=== PATIENT | female | born 1970 | race African-American/Black ===

== ENCOUNTER → 2016-07-30 | Outpatient (CLI) | payer OTHER ==
[2015-12-24 15:02] VITALS: BP 139/97
[~2016-07-30] MED LIST: ASPI-482 PO; Aspirin PO; HYDR-2867 PO; HYDR25TA9 PO; Hydralazine Hcl PO; Hydrochlorothiazide PO; ISOS20TA2 PO; ISOS30TA4 PO; Isosorbide Mononitrate PO; LISI-334 PO; LISI20TA PO; METO25TA4 PO; METO50TA2 PO; Metoprolol Tartrate PO; PANT40TA3 PO; SUCR1TAB29 PO; TRAM50TA PO
--- NOTE | 2016-07-30 13:45 | KCIC ---
PROCEDURE Three-view right knee study HISTORY Right knee pain for 2 weeks with swelling. Status post injury. FINDINGS No acute fracture or dislocation or osteolytic process is seen. There is moderate spurring and mild joint space narrowing of the lateral tibiofemoral joint compartment. There is moderate spurring without joint space narrowing of the medial tibiofemoral joint compartment. Multiple benign-appearing osteochondromas including the distal femur and the proximal tibia are seen. IMPRESSION Osteochondromatosis. Primary degenerative osteoarthritis of the medial and lateral tibiofemoral joint compartments. Electronically signed by: Lincoln Kee MD (Jul 30, 2016 13:43:11)
== END | disposition home or self-care (01) ==
LOC: KCIC 11:40
PROVIDERS: ATTEND Internal Medicine
DX: M17.11 Unilateral primary osteoarthritis, right knee (principal); D48.0 Neoplasm of uncertain behavior of bone and articular cartilage; M25.461 Effusion, right knee
CPT/HCPCS: 73562

== ENCOUNTER 2016-10-25 20:42 | Emergency (ER) | payer OTHER ==
[~2016-10-25] VITALS: Ht 160 cm; Wt 98.4 kg
[2016-10-25 20:48] VITALS: BP 121/78
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
--- NOTE | 2016-10-26 08:07 | RAD ---
Indication injury, pain. AP oblique and lateral views of the right knee were obtained as well as a sunrise view. There are some mild degenerative changes involving the knee. No acute bony finding is apparent. There is likely a small joint effusion. IMPRESSION: No acute bony finding
--- NOTE | 2016-10-26 08:17 | RAD ---
Indication injury, pain. Internally and externally rotated views of the right shoulder as well as a Y view were obtained. There is slight irregularity adjacent to the acromion. This has a chronic appearance and appears similar to an examination June 25, 2014. No acute finding is seen. Significant degenerative changes are not apparent on plain films. IMPRESSION: No acute bony finding
== END 2016-10-25 21:53 | disposition home or self-care (01) ==
LOC: ER 20:42
DX: M25.511 Pain in right shoulder (principal); M25.561 Pain in right knee; I10 Essential (primary) hypertension; Z90.49 Acquired absence of other specified parts of digestive tract; Z91.018 Allergy to other foods; Z90.721 Acquired absence of ovaries, unilateral; Y08.89XA Assault by other specified means, initial encounter; Y93.89 Activity, other specified; Y92.89 Other specified places as the place of occurrence of the external cause; Y99.8 Other external cause status
CPT/HCPCS: 73030; 73564; 99284-25

== ENCOUNTER → 2017-01-10 | Outpatient (CLI) | payer OTHER ==
[~2017-01-10] MED LIST changes: -SUCR1TAB29 PO; +SUCR1TAB35 PO
[2017-01-10 13:07] LABS: BASO % 1 % (0-3); EOS % 1 % (0-3); HEMATOCRIT 44.6 % (36.0-47.0); HEMOGLOBIN 15.5 g/dL (12.0-15.5); LYMPH # 2.4 x10^3/uL (1.0-4.8); LYMPH % 43 % (24-48); MEAN CORPUSCULAR HEMOGLOBIN 35 pg (25-35); MEAN CORPUSCULAR HGB CONC 35 g/dL (31-37); MEAN CORPUSCULAR VOLUME 100 fL (79-100); MONO % 9 % (0-9); NEUT % 46 % (31-73); PLATELET COUNT 198 x10^3/uL (140-400); RED BLOOD COUNT 4.45 x10^6/uL (3.50-5.40); RED CELL DISTRIBUTION WIDTH 14.4 % (11.5-14.5); WHITE BLOOD COUNT 5.7 x10^3/uL (4.0-11.0)
[2017-01-10 13:20] LABS: ALBUMIN 3.4 g/dL (3.4-5.0); ALBUMIN/GLOBULIN RATIO 0.8 (1.0-1.7); CALCIUM 8.6 mg/dL (8.5-10.1); CHOLESTEROL/HDL RATIO 2.8; CREATININE 0.7 mg/dL (0.6-1.0); GFR 108.5; POTASSIUM 3.8 mmol/L (3.5-5.1); TOTAL BILIRUBIN 0.4 mg/dL (0.2-1.0); TOTAL PROTEIN 7.8 g/dL (6.4-8.2)
== END | disposition home or self-care (01) ==
LOC: LAB 12:24
PROVIDERS: ATTEND Nurse Practitioner
DX: I10 Essential (primary) hypertension (principal); E78.2 Mixed hyperlipidemia
CPT/HCPCS: 36415; 80053; 80061; 84443; 85025

== ENCOUNTER 2017-06-29 16:43 | Emergency (ER) | payer OTHER ==
[2017-06-29] MEDS: IBUPROFEN 800 MG TABLET. PO ×2 (17:00)
== END 2017-06-29 17:53 | disposition home or self-care (01) ==
LOC: ER 16:43
DX: S63.501A Unspecified sprain of right wrist, initial encounter (principal); I10 Essential (primary) hypertension; Z90.49 Acquired absence of other specified parts of digestive tract; Z98.51 Tubal ligation status; Z90.721 Acquired absence of ovaries, unilateral; Z91.018 Allergy to other foods; W18.2XXA Fall in (into) shower or empty bathtub, initial encounter; Y93.F1 Activity, caregiving, bathing; Y92.89 Other specified places as the place of occurrence of the external cause; Y99.8 Other external cause status
CPT/HCPCS: 29125; 73110; 99284

== ENCOUNTER 2017-11-05 11:43 | Emergency (ER) | payer SELFPAY, OTHER ==
[2017-11-05] MEDS: HYDROcodone/APAP 5/325MG 1 TAB TABLET PO (12:45)
[2017-11-05] MEDS: predniSONE 20 MG TABLET PO (12:46)
[2017-11-05] MEDS: NAPROXEN 500 MG TABLET PO (12:46)
== END 2017-11-05 14:01 | disposition home or self-care (01) ==
LOC: ER 14:01
DX: M17.11 Unilateral primary osteoarthritis, right knee (principal); G89.29 Other chronic pain; I10 Essential (primary) hypertension; Z90.49 Acquired absence of other specified parts of digestive tract; Z98.51 Tubal ligation status; Z91.018 Allergy to other foods
CPT/HCPCS: 73562; 99284; J7512

== ENCOUNTER 2019-02-26 13:11 | Emergency (ER) | payer SELFPAY ==
[~2019-02-26] VITALS: Ht 162.6 cm; Wt 95.3 kg
[~2019-02-26 13:11] MED LIST changes: +DICL50TA2 PO; +HYDR-2145 PO; -HYDR25TA9 PO; +IBUP-1060 PO; -METO50TA2 PO; +METO50TA6 PO; -PANT40TA3 PO; +PANT40TA77 PO
[2019-02-26 13:41] VITALS: BP 176/126
[2019-02-26] MEDS ORDERED: ORPHENADRINE CITRATE 60 MG/2 ML VIAL. IM ONE (14:30)
[2019-02-26] MEDS ORDERED: KETOROLAC 60 MG/2 ML VIAL. IM ONE (14:30)
[2019-02-26] MEDS ORDERED: NAPR-514 PO (14:41)
[2019-02-26] MEDS ORDERED: CYCL10TA2 PO (14:41)
--- NOTE | 2019-02-26 14:41 | PHYS DOC ---
Past Medical History Past Medical History: Hypertension Past Surgical History: Cholecystectomy, , Tubal ligation Additional Past Surgical Histo: RIGHT OOPHORECTOMY Alcohol Use: Occasionally Drug Use: None Adult General Chief Complaint Chief Complaint: UPPER EXTREMITY PAIN HPI HPI Patient is a 48 year old AA female who presents to the emergency Department today with complaints of right shoulder pain since awakening. Patient denies any recent injury, heavy lifting, or overuse of the affected extremity. She states that she woke up this morning with the pain. She currently rates the pain a 9 out of 10 on pain scale, there are no alleviating factors, the pain increases when she tries to move her arm. She denies any neck pain, headache, fever, numbness, tingling, or weakness. Review of Systems Review of Systems Constitutional: Denies fever or chills [] Eyes: Denies redness, or eye pain [] HENT: Denies nasal congestion or sore throat [] Respiratory: Denies cough or shortness of breath [] Cardiovascular: No additional information not addressed in HPI [] GI: Denies abdominal pain, nausea, vomiting, or diarrhea [] : Denies dysuria Musculoskeletal: See history of present illness Integument: Denies rash or skin lesions [] Neurologic: Denies headache, focal weakness or sensory changes [] Complete systems were reviewed and found to be within normal limits, except as documented in this note. Current Medications Current Medications Current Medications Medications (Trade) Dose Ordered Sig/[facility] Start Time Stop Time Status Last Admin Dose Admin Ketorolac Tromethamine (Toradol Im) 30 mg 1X ONCE 02/26/19 14:30 02/26/19 14:31 DC Orphenadrine Citrate (Norflex) 60 mg 1X ONCE 02/26/19 14:30 02/26/19 14:31 DC Allergies Allergies Allergies Coded Allergies Type Severity Reaction Last Updated Verified onion Allergy Intermediate 12/24/15 Yes pepper (genus Capsicum) Allergy Intermediate 01/29/15 Yes No Known Medication Allergies Allergy Unknown 06/28/14 Yes Physical Exam Physical Exam Constitutional: Well developed, well nourished, no acute distress, non-toxic appearance. [] HENT: Normocephalic, atraumatic, bilateral external ears normal, oropharynx moist, no oral exudates, nose normal. [] Eyes: PERRLA, EOMI, conjunctiva normal, no discharge. [] Neck: Normal range of motion, no bony or muscular TTP, supple, no stridor. [] Cardiovascular:Heart rate regular rhythm, no murmur [] Lungs & Thorax: Bilateral breath sounds clear to auscultation [] Skin: Warm, dry, no erythema, no rash. [] Back: No bony tenderness, R trapezius TTP and tightness Extremities: R shoulder: No bony tenderness, no cyanosis, no clubbing, ROM limited due to pain, no edema. [] Neurologic: Alert and oriented X 3, no focal deficits noted. [] Psychologic: Affect normal, judgement normal, mood normal. [] Current Patient Data Vital Signs Vital Signs Date Time Temp Pulse Resp B/P (MAP) Pulse Ox O2 Delivery O2 Flow Rate FiO2 02/26/19 13:41 98.4 79 16 176/126 (143) 94 Room Air 98.4 EKG EKG [] Radiology/Procedures Radiology/Procedures [] Course & Med Decision Making Course & Med Decision Making Pertinent Labs and Imaging studies reviewed. (See chart for details) dx: R trapezius strain Pt was given 30 mg of IM toradol in the ER and 60 mg of IM norflex. Prescriptions written for naproxen and flexeril. Follow up with PCP if symptoms persist, return to the ER if symptoms worsen. Patient verbalized an understanding of home care, medications, follow-up, and return to ED instructions and was in agreement with the plan of care. [] Dragon Disclaimer Dragon Disclaimer This electronic medical record was generated, in whole or in part, using a voice recognition dictation system. Departure Departure Impression: Primary Impression: Strain of right trapezius muscle Disposition: 01 HOME, SELF-CARE Condition: STABLE Referrals: CARMEN FAM MD (PCP) Patient Instructions: Shoulder Pain, [id number] Additional Instructions: Fill prescription(s) and use as directed. Recommend application of ice or heat as needed for comfort. Follow up with your primary care doctor if symptoms persist. Return to the ER if your symptoms worsen. Scripts Naproxen (NAPROXEN) 500 Mg Tablet 1 TAB PO BID PRN for PAIN for 10 Days, #20 TAB 0 Refills Prov: ZEYAD KOVACS APRN 02/26/19 Cyclobenzaprine Hcl (CYCLOBENZAPRINE HCL) 10 Mg Tablet 1 TAB PO TID for 10 Days, #30 TAB 0 Refills Prov: ZEYAD KOVACS APRN 02/26/19 Problem Qualifiers Primary Impression: Strain of right trapezius muscle Encounter type: initial encounter Qualified Codes: S46.811A - Strain of other muscles, fascia and tendons at shoulder and upper arm level, right arm, initial encounter ZEYAD KOVACS APRN Feb 26, 2019 14:41
== END 2019-02-26 14:47 | disposition home or self-care (01) ==
LOC: ER 13:11
DX: S46.811A Strain of other muscles, fascia and tendons at shoulder and upper arm level, right arm, initial encounter (principal); I10 Essential (primary) hypertension; Z91.018 Allergy to other foods; X58.XXXA Exposure to other specified factors, initial encounter; Y93.89 Activity, other specified; Y92.89 Other specified places as the place of occurrence of the external cause; Y99.8 Other external cause status
CPT/HCPCS: 96372; 99284; J1885; J2360

== ENCOUNTER 2019-09-12 11:45 | Emergency (ER) | payer SELFPAY ==
[~2019-09-12] VITALS: Ht 162.6 cm; Wt 97.0 kg
[~2019-09-12 11:45] MED LIST changes: +CYCL10TA2 PO; +NAPR-514 PO
--- NOTE | 2019-09-12 12:32 | RAD ---
AP, sunrise, and lateral views of the right knee were obtained. Indication: Pain and fall Comparison: none. Findings: There is mild degenerative change. There is a suprapatellar joint effusion. No fracture subluxation dislocation is identified. Electronically signed by: Derik Teague MD (09/12/2019 12:29 PM) [id number]
--- NOTE | 2019-09-12 12:54 | PHYS DOC ---
Past Medical History Past Medical History: Hypertension Past Surgical History: Cholecystectomy, , Tubal ligation Additional Past Surgical Histo: RIGHT OOPHORECTOMY Smoking Status: Current Every Day Smoker Alcohol Use: Occasionally Drug Use: None General Adult EDM: Chief Complaint: KNEE INJURY HPI: HPI: Patient is a 49 year old female with hx of HTN who presents with 10/10 right knee pain that begun four days ago after she feel helping her mother use the commode. NO LOC. Pain got worse two days ago. Pain worse on ambulation. Denies any thing specifically relieving the pain. Review of Systems: Review of Systems: Constitutional: Denies fever or chills. [] Eyes: Denies change in visual acuity. [] HENT: Denies nasal congestion or sore throat. [] Respiratory: Denies cough or shortness of breath. [] Cardiovascular: Denies chest pain or edema. [] GI: Denies abdominal pain, nausea, vomiting, bloody stools or diarrhea. [] : Denies dysuria. [] Musculoskeletal: Reports right knee pain Integument: Denies rash. [] Neurologic: Reports headache, denies focal weakness or sensory changes. [] Psychiatric: Denies depression or anxiety. [] Heart Score: Risk Factors: Risk Factors: DM, Current or recent (<one month) smoker, HTN, HLP, family history of CAD, obesity. Risk Scores: Score 0 - 3: 2.5% MACE over next 6 weeks - Discharge Home Score 4 - 6: 20.3% MACE over next 6 weeks - Admit for Clinical Observation Score 7 - 10: 72.7% MACE over next 6 weeks - Early Invasive Strategies Allergies: Allergies: Allergies Coded Allergies Type Severity Reaction Last Updated Verified onion Allergy Intermediate 12/24/15 Yes pepper (genus Capsicum) Allergy Intermediate 01/29/15 Yes No Known Medication Allergies Allergy Unknown 06/28/14 Yes Physical Exam: PE: Constitutional: Well developed, well nourished, no acute distress, non-toxic appearance. [] HENT: Normocephalic, atraumatic, bilateral external ears normal, oropharynx moist, no oral exudates, nose normal. [] Eyes: PERRLA, EOMI, conjunctiva normal, no discharge. [] Neck: Normal range of motion, no tenderness, supple, no stridor. [] Cardiovascular:Heart rate regular rhythm, no murmur [] Lungs & Thorax: Bilateral breath sounds clear to auscultation [] Abdomen: Bowel sounds normal, soft, no tenderness, no masses, no pulsatile masses. [] Skin: Warm, dry, no erythema, no rash. [] Back: No tenderness, no CVA tenderness. [] Extremities: No tenderness, no cyanosis, no clubbing, ROM intact, no edema. [] Neurologic: Alert and oriented X 3, normal motor function, normal sensory fun ction, no focal deficits noted. Cranial nerves II-XII intact. Psychologic: Affect normal, judgement normal, mood normal. [] Current Patient Data: Vital Signs: Vital Signs Date Time Temp Pulse Resp B/P (MAP) Pulse Ox O2 Delivery O2 Flow Rate FiO2 09/12/19 12:12 98.2 85 16 195/136 (155) 96 Room Air 98.2 EKG: EKG: [] Radiology/Procedures: Radiology/Procedures: []PROCEDURE: KNEE RIGHT 4V AP, sunrise, and lateral views of the right knee were obtained. Indication: Pain and fall Comparison: none. Findings: There is mild degenerative change. There is a suprapatellar joint effusion. No fracture subluxation dislocation is identified. Electronically signed by: Derik Elizabeth MD (09/12/2019 12:29 PM) [id number] DICTATED and SIGNED BY: DERIK ELIZABETH MD DATE: 09/12/19 1229 Course & Med Decision Making: Course & Med Decision Making Pertinent Labs and Imaging studies reviewed. (See chart for details) This is a 49 year old female with complaints of right knee pain for 4 days after falling. Right knee xray interpreted by radiologist was negative for any acute findings. Noted for mild degenerative change a suprapatellar joint effusion. Placed in a knee immobilizer by the donor center technician, neurovascular exam is negative. Ice elevation encouraged. F/u with Ortho. BP noted at 195/136 HR 85 BP has been chronically high. Patient states she is on BP medicines. Given Clonidine in the Ed. F/u with PCP for BP management. Carloson Disclaimer: Denisse Disclaimer: This electronic medical record was generated, in whole or in part, using a voice recognition dictation system. Departure Departure Impression: Primary Impression: Right knee DJD Qualified Codes: M17.11 - Unilateral primary osteoarthritis, right knee Additional Impressions: Accelerated hypertension Joint effusion, knee Qualified Codes: M25.461 - Effusion, right knee Fall Qualified Codes: W19.XXXA - Unspecified fall, initial encounter Disposition: HOME, SELF-CARE Condition: STABLE Referrals: UNKNOWN PCP NAME (PCP) TONY ASENCIO MD follow up in one week Patient Instructions: Arthritis, Degenerative-Brief, Hypertension Additional Instructions: Please follow up with your primary care doctor in the course of this week for blood pressure management. Your right knee xrays were negative for any acute findings. You have arthritis in your knee as well as a joint effusion. Please wear the immobilizer provided as ordered. Please ice and elevate the extremity. Scripts Gabapentin (GABAPENTIN ) 300 Mg Capsule 300 MG PO TID for NEUROGENIC PAIN, #20 CAP Prov: JOHN LOYA APRN 09/12/19 Naproxen (NAPROXEN) 375 Mg Tablet 1 TAB PO BID for pain, #14 TAB 0 Refills with food Prov: JOHN LOYA APRN 09/12/19 JOHN LOYA APRN Sep 12, 2019 12:54
[2019-09-12] MEDS ORDERED: cloNIDine HCL 0.1 MG TABLET PO ONE (13:00)
[2019-09-12] MEDS ORDERED: GABA300C18 PO (13:19)
[2019-09-12] MEDS ORDERED: NAPR-695 PO (13:19)
[2019-09-12 13:38] VITALS: BP 173/109
== END 2019-09-12 13:54 | disposition home or self-care (01) ==
LOC: ER 11:45
DX: M17.11 Unilateral primary osteoarthritis, right knee (principal); M25.461 Effusion, right knee; I10 Essential (primary) hypertension; F17.200 Nicotine dependence, unspecified, uncomplicated; Z98.51 Tubal ligation status; Z98.890 Other specified postprocedural states; Z91.018 Allergy to other foods; W19.XXXA Unspecified fall, initial encounter; Y93.89 Activity, other specified; Y92.89 Other specified places as the place of occurrence of the external cause; Y99.8 Other external cause status
CPT/HCPCS: 29515; 73564; 99285